=== PATIENT | male | born 1960 | race Caucasian/White ===

== ENCOUNTER 2017-01-22 13:33 | Emergency (ER) | payer OTHER ==
[~2017-01-22] VITALS: Wt 95.4 kg
[2017-01-22] MEDS ORDERED: HYDROCODONE/APAP (5/325) TAB PO ONE (15:30)
--- NOTE | 2017-01-22 16:23 | ERD ---
ER Documentation Chief Complaint Date/Time DATE: 01/22/17 TIME: 16:20 Chief Complaint SORE THROAT AND COUGH FOR A WEEK WITH INTERMITTENT FEVERS. (RENATO GRANGER PA-C) HPI This 56-year-old male who presents to the emergency department today complaining of cough, sore throat, body aches and intermittent fevers for the past 5 days. Patient states that he also had testicular pain for the past 2 days and he had "veins removed many years ago". States that he had a fever for the first 3 days and has been taking toxin for diabetics. Denies any vomiting or diarrhea (RENATO GRANGER PA-C) ROS All systems reviewed and are negative except as per history of present illness. (RENATO GRANGER PA-C) Medications Home Meds Active Scripts Dextromethorphan Hb-Promethazine Hcl (Promethazine DM Syrup) 473 Ml Syrup, 5 ML PO Q6H Y for COUGH, #4 OZ Prov:RENATO GRANGER PA-C 01/22/17 Naproxen* (Naprosyn*) 500 Mg Tablet, 500 MG PO BID Y for PAIN AND/OR INFLAMMATION, #30 TAB Prov:RENATO GRANGER PA-C 01/22/17 Acetaminophen* (Tylophen*) 500 Mg Capsule, 1 CAP PO Q6H Y for PAIN AND OR ELEVATED TEMP, #30 CAP Prov:RENATO GRANGER PA-C 01/22/17 PMhx/Soc Medical and Surgical Hx: pt denies Medical Hx, pt denies Surgical Hx Hx Alcohol Use: No Hx Substance Use: No Hx Tobacco Use: No (RENATO GRANGER PA-C) Physical Exam Vitals Vital Signs Date Time Temp Pulse Resp B/P Pulse Ox O2 Delivery O2 Flow Rate FiO2 01/22/17 13:39 99.9 92 22 143/82 96 (LULU ART MD) Physical Exam Const: NAD Head: Atraumatic Eyes: Normal Conjunctiva ENT: Ears TMs normal. Nose no drainage. Throat no erythema no exudate Neck: Full range of motion..~ No meningismus. Resp: Clear to auscultation bilaterally no absent breath sounds. No wheezing. Cardio: Regular rate and rhythm, no murmurs Abd: Soft, non tender, non distended. Normal bowel sounds uncircumcised penis. No purulent discharge. Tenderness palpation bilateral testicles. Testicles descended bilaterally. No erythema or warmth. No evidence of swelling. Skin: No petechiae or rashes Back: No midline or flank tenderness Ext: No cyanosis, or edema Neur: Awake and alert Psych: Normal Mood and Affect (RENATO GRANGER PA-C) Results 24 hrs Laboratory Tests Test 01/22/17 16:37 Bedside Urine pH (LAB) 5.5 Bedside Urine Protein (LAB) 1+ Bedside Urine Glucose (UA) Negative Bedside Urine Ketones (LAB) Negative Bedside Urine Blood Trace-intact Bedside Urine Nitrite (LAB) Negative Bedside Urine Leukocyte Esterase (L Negative Current Medications Medications (Trade) Dose Ordered Sig/Emanuel Route PRN Reason Start Time Stop Time Status Last Admin Dose Admin Acetaminophen/ Hydrocodone Bitart ([place] (5/325)) 1 tab ONCE ONCE PO 01/22/17 15:30 01/22/17 15:31 DC 01/22/17 15:32 (LULU ART MD) Results 24 hrs DIAGNOSTIC IMAGING REPORT Patient: SOTERO BATISTA : 1960 Age: 56 Sex: M MR #: [id number] DOS: 01/22/17 0000 Ordering MD: RENATO GRANGER PA-C Location: [facility] Room/Bed: PROCEDURE: XR Chest. CLINICAL INDICATION: Cough. TECHNIQUE: Chest PA. COMPARISON: No comparison available. FINDINGS: The mediastinal structures are unremarkable. The heart is normal in size and configuration. The pulmonary vascularity is normal. There is mild bibasilar subsegmental atelectasis. No consolidation is identified. The pleural spaces are unremarkable. The axial skeleton is unremarkable. IMPRESSION: Mild bibasilar subsegmental atelectasis No consolidation identified RPTAT: HGDB .Trenton Sewell MD, MD Date Time Electronically viewed and signed by .Trenton Sewell MD, MD on 01/22/2017 16:21 .B/ CC: RENATO GRANGER PA-C (RENATO GRANGER PA-C) Procedures/MDM This a 56-year-old male who presents to the emergency department today complaining of multiple complaints. Patient was complaining of influenza-like symptoms as well as testicular pain. He is afebrile and his oxygen saturation 96 % however I did do a chest x-ray and the patient given the patient's age and complaints of cough for the past 5 days. Chest x-ray shows mild bibasilar subsegmental atelectasis with no consolidation identified. Pleural spaces are unremarkable. Testicular ultrasound and UA was pending at time of signout to Dr. Art Patient was given a prescription for Tylenol, Naprosyn, promethazine (RENATO GRANGER PA-C) Patient with scrotal pain had a scrotal ultrasound which shows bilateral extensive microlithiasis without evidence of torsion, abscess, acute findings. He will be referred to urology for further evaluation management, otherwise advised to recheck for any worsening symptoms (LULU ART MD) RENATO GRANGER PA-C Jan 22, 2017 16:22 LULU ART MD Jan 22, 2017 17:12
[2017-01-22] MEDS ORDERED: ACET500C5 PO (16:29)
[2017-01-22] MEDS ORDERED: NAPR-260 PO (16:29)
[2017-01-22] MEDS ORDERED: D-ME473S18 PO (16:30)
[2017-01-22 16:37] LABS: URINE BLOOD (Dip) POC Trace-intact (NEGATIVE)
--- NOTE | 2017-01-22 17:05 | RADRPT ---
PROCEDURE: US Scrotum. CLINICAL INDICATION: bilateral testicle pain TECHNIQUE: Multiple sonographic images of the scrotal region were obtained utilizing a linear arra y transducer with grayscale and color-flow and a Doppler imaging. The images were reviewed on a high -resolution PACS workstation. COMPARISON: No prior studies are available for comparison. FINDINGS: There is extensive punctate calcification through the right testis. No focal abnormal mass is ident ified. The posterior testis is partially obscured by shadowing. The right testicle measures measur es 2.9 x 1.5 x 1.9 centimeters. There is normal color-flow. The right epididymis is visualized and u nremarkable in appearance. There is normal color-flow. There is extensive punctate calcifications through the left testis. There is no focal mass identifi ed. Shadowing partially obscures the posterior testis. The left testicle measures measures 2.8 x 1. 6 x 2.4 cm. There is normal color-flow. The left epididymis is visualized and is unremarkable in naya earance. There is normal color-flow. There is a small left varicocele. The scrotal wall is unremarkable. No swelling or edema is seen. No other incidental abnormality is identified. IMPRESSION: 1. Extensive bilateral testicular microlithiasis. No abnormal mass identified. Maintained bilater al vascular flow. 2. Small left varicocele. RPTAT: DD .Bernardo Lee MD, MD Date Time Electronically viewed and signed by .Bernardo Lee MD, MD on 01/22/2017 17:05 .T/
[2017-01-22 17:16] VITALS: BP 139/69; PULSE 68; RESP 18
== END 2017-01-22 17:18 | disposition home or self-care (01) ==
LOC: FTE 13:33
DX: J02.9 Acute pharyngitis, unspecified (principal); R05 Cough; R50.9 Fever, unspecified
CPT/HCPCS: 71010; 76870; 81003; Z7502; Z7610